=== PATIENT | female | born 1960 | race Caucasian/White ===

== ENCOUNTER 2017-10-30 08:00 | Outpatient (CLI) | payer OTHER | END 2017-10-30 08:01 | disposition home or self-care (01) | LOC: LAB.R 08:00 | PROVIDERS: ATTEND Obstetrics & Gynecology | DX: R82.99 Other abnormal findings in urine (principal) | CPT/HCPCS: 87077; 87086 ==

== ENCOUNTER 2018-02-22 15:42 | Emergency (ER) | payer OTHER ==
[2018-02-22 15:56] VITALS: BP 158/92
[2018-02-22] MEDS ORDERED: IBUPROFEN 800 MG TABLET PO STA (17:05)
--- NOTE | 2018-02-22 17:38 | XRAY Preliminary Report ---
Exam: XR CHEST 2 VIEW X-RAY IMPRESSION: Normal 2-view chest radiography. [facility] SITE ID: [id number]
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
== END 2018-02-22 17:53 | disposition home or self-care (01) ==
LOC: ED 15:42
DX: S20.211A Contusion of right front wall of thorax, initial encounter (principal); V43.52XA Car driver injured in collision with other type car in traffic accident, initial encounter
CPT/HCPCS: 71046; 99282; 99283; A9270

== ENCOUNTER 2018-12-05 10:56 | Emergency (ER) | payer BC, OTHER ==
[2018-12-05 11:37] LABS: BASOPHILS # (AUTO) 0.1 10^3/uL (0.0-0.1); BASOPHILS % (AUTO) 0.6 %; EOSINOPHILS # (AUTO) 0.4 10^3/uL (0.0-0.7); EOSINOPHILS % (AUTO) 2.1 %; HGB - HEMOGLOBIN 12.8 g/dL (12.0-16.0); LYMPHOCYTES # (AUTO) 1.4 10^3/uL (1.5-3.5); LYMPHOCYTES % (AUTO) 7.9 %; MEAN CORPUSCULAR HEMOGLOBIN 30.1 pg (27.0-31.0); MEAN CORPUSCULAR HGB CONC 34.5 g/dL (32.0-36.0); MEAN CORPUSCULAR VOLUME 87.2 fL (81.0-99.0); MONOCYTES # (AUTO) 1.3 10^3/uL (0.0-1.0); NEUTROPHILS # (AUTO) 14.7 10^3/uL (1.5-6.6); NEUTROPHILS % (AUTO) 82.4 %; PLT - PLATELET COUNT 303 10^3/uL (130-450); RED BLOOD COUNT 4.24 10^6/uL (4.20-5.40); RED CELL DISTRIBUTION WIDTH 13.3 % (12.0-15.0); WHITE BLOOD COUNT 17.8 x10^3/uL (4.8-10.8)
[2018-12-05 11:44] LABS: ALBUMIN 4.2 g/dL (3.2-5.5); ALBUMIN/GLOBULIN RATIO 1.6 (1.0-2.2); BILIRUBIN,TOTAL 0.6 mg/dL (0.2-1.0); CALCIUM 9.1 mg/dL (8.5-10.3); CREATININE 0.4 mg/dL (0.4-1.0); TOTAL PROTEIN 6.9 g/dL (6.7-8.2)
[2018-12-05] MEDS ORDERED: SODIUM CHLORIDE 0.9% 1,000 ML IV ONE (12:16)
--- NOTE | 2018-12-05 12:24 | ED Physician Documentation ---
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 She has an odd constellation of symptoms. For the last 2 weeks she has had an upper respiratory infection with postnasal drip and constipation for which she is taken a variety of laxatives. More recently about a week ago she noticed some fullness of the posterior tongue and saw her physician who felt it was probably postnasal drip. Over the last few days she has had right greater than left arm weakness associated with soreness such that she is stopped brushing her hair because it hurts too much and she noticed that her hands cramp if she is writing a lot. She denies any weakness anywhere. There is no associated headache. She denies nausea or chest pain. She is mildly short of breath. She notes her blood pressure was up, but she is taking some Sudafed for the congestion. She is a daily drinker but denies anything to drink today.) Review of Systems Ten Systems: 10 systems reviewed and negative Constitutional: reports: Fatigue. denies: Fever, Chills, Weight Loss Ears: denies: Loss of hearing, Ear pain Nose: reports: Rhinorrhea / runny nose, Congestion. denies: Sinus pressure / pain Throat: denies: Sore throat Cardiac: denies: Chest pain / pressure, Palpitations Respiratory: reports: Dyspnea. denies: Cough GI: reports: Constipation. 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 - Present Medications Home Medications: Ambulatory Orders Medication Instructions Recorded Confirmed Cholecalciferol (Vitamin D3) 2,000 unit PO DAILY 09/19/13 02/22/18 [Vitamin D] Multivit with Iron-Minerals 1 each PO DAILY 09/19/13 02/22/18 [Centravites 50 Plus] - Allergies Allergies/Adverse Reactions: Allergies Allergy/AdvReac Type Severity Reaction Status Date / Time latex AdvReac Intermediate Rash Verified 02/22/18 15:56 - Social History Does the pt smoke?: No Smoking Status: Never smoker Does the pt drink ETOH?: Yes Does the pt have substance abuse?: No - Immunizations Immunizations are current?: Yes - POLST Patient has POLST: No PD ED PE NORMAL - Vitals Vital signs reviewed: Yes - General General: Alert and oriented X 3, No acute distress - HEENT HEENT: PERRL, EOMI, Other (Slightly slowed slurred speech but the oropharynx is normal) - Neck Neck: Supple, no meningeal sign, No bony TTP - Cardiac Cardiac: RRR, No murmur - Respiratory Respiratory: No respiratory distress, Clear bilaterally - Abdomen Abdomen: Normal bowel sounds, Soft, Non tender - Back Back: No CVA TTP, No spinal TTP - Derm Derm: Normal color, Warm and dry - Neuro Neuro: Alert and oriented X 3, Normal speech Eye Opening: Spontaneous Motor: Obeys Commands Verbal: Oriented GCS Score: 15 - Psych Psych: Normal mood, Normal affect NIHSS - Time Time: 12:15 - Level of Consciousness Level of consciousness: (0) Alert, Keenly responsive LOC Questions: (0) Answers both Q's correct LOC Commands: (0) Performs both correctly - Gaze Best Gaze: (0) Normal (Also checked with repetitive upward gaze for ptosis which was absent) - Visual Visual: (0) No loss - Facial Palsy Facial Palsy: (0) Normal, symmetrical movement - Motor Arms (both separate) Motor Arm (right): (0) No drift Motor Arm (left): (0) No drift - Motor Legs (both separate) Motor Leg (right): (0) No drift Motor Leg (left): (0) No drift - Limb Ataxia Limb Ataxia: (0) Absent - Sensory Sensory: (0) Normal - Best Language Best Language: (0) No aphasia - Dysarthria Dysarthria: (0) Normal - Extinction and Inattention (formally neg Extinction and inattention: (0) No abnormality - Total Score/Results Total Score/Result: 0 Results - Vitals Vitals: Vital Signs - 24 hr 12/05/18 12/05/18 12/05/18 11:05 11:20 13:00 Temperature 35.6 C L Heart Rate 77 68 Respiratory 18 18 18 Rate Blood Pressure 175/104 H 141/90 H O2 Saturation 97 98 Oxygen O2 Source Room air - EKG (time done) 1129 Rate: Rate (enter#) (73) Rhythm: NSR [place]: Normal Intervals: Normal [place] QRS: Normal Ischemia: Normal ST segments Computer interpretation: Agree with computer - Labs Labs: Laboratory Tests 12/05/18 12/05/18 12/05/18 11:18 11:18 11:23 WBC 17.8 H RBC 4.24 Hgb 12.8 Hct 37.0 MCV 87.2 MCH 30.1 MCHC 34.5 RDW 13.3 Plt Count 303 MPV 8.0 Neut # (Auto) 14.7 H Lymph # (Auto) 1.4 L Smith # (Auto) 1.3 H Eos # (Auto) 0.4 Baso # (Auto) 0.1 Absolute Nucleated RBC 0.00 Nucleated RBC % 0.0 Sodium 128 L Potassium 3.7 Chloride 94 L Carbon Dioxide 24 Anion Gap 10.0 BUN 8 Creatinine 0.4 Estimated GFR (MDRD) 165 Glucose 98 Calcium 9.1 Phosphorus 4.1 Magnesium 1.9 Total Bilirubin 0.6 AST 29 ALT 32 Alkaline Phosphatase 49 Total Creatine Kinase 82 CK-MB (CK-2) Troponin I Total Protein 6.9 Albumin 4.2 Globulin 2.7 Albumin/Globulin Ratio 1.6 Lipase 40 TSH Urine Color Urine Clarity Urine pH Ur Specific [place] Urine Protein Urine Glucose (UA) Urine Ketones Urine Occult Blood Urine Nitrite Urine Bilirubin Urine Urobilinogen Ur Leukocyte Esterase Urine RBC Urine WBC Ur Squamous Epith Cells Urine Bacteria Ur Microscopic Review Urine Culture Comments Urine Opiates Screen Ur Oxycodone Screen Urine Methadone Screen Ur Propoxyphene Screen Ur Barbiturates Screen Ur Tricyclics Screen Ur Phencyclidine Scrn Ur Amphetamine Screen U Methamphetamines Scrn U Benzodiazepines Scrn Urine Cocaine Screen U Cannabinoids Screen Ethyl Alcohol < 5.0 12/05/18 12/05/18 12/05/18 11:23 11:23 12:26 WBC RBC Hgb Hct MCV MCH MCHC RDW Plt Count MPV Neut # (Auto) Lymph # (Auto) Smith # (Auto) Eos # (Auto) Baso # (Auto) Absolute Nucleated RBC Nucleated RBC % Sodium Potassium Chloride Carbon Dioxide Anion Gap BUN Creatinine Estimated GFR (MDRD) Glucose Calcium Phosphorus Magnesium Total Bilirubin AST ALT Alkaline Phosphatase Total Creatine Kinase CK-MB (CK-2) 3.8 Troponin I < 0.04 Total Protein Albumin Globulin Albumin/Globulin Ratio Lipase TSH 1.11 Urine Color YELLOW Urine Clarity CLEAR Urine pH 7.5 Ur Specific [place] 1.010 Urine Protein NEGATIVE Urine Glucose (UA) NEGATIVE Urine Ketones NEGATIVE Urine Occult Blood NEGATIVE Urine Nitrite NEGATIVE Urine Bilirubin NEGATIVE Urine Urobilinogen 0.2 (NORMAL) Ur Leukocyte Esterase TRACE H Urine RBC None Seen Urine WBC 4-5 Ur Squamous Epith Cells NONE SEEN Urine Bacteria Rare Ur Microscopic Review INDICATED Urine Culture Comments INDICATED Urine Opiates Screen NEGATIVE Ur Oxycodone Screen NEGATIVE Urine Methadone Screen NEGATIVE Ur Propoxyphene Screen NEGATIVE Ur Barbiturates Screen NEGATIVE Ur Tricyclics Screen NEGATIVE Ur Phencyclidine Scrn NEGATIVE Ur Amphetamine Screen NEGATIVE U Methamphetamines Scrn NEGATIVE U Benzodiazepines Scrn NEGATIVE Urine Cocaine Screen NEGATIVE U Cannabinoids Screen NEGATIVE Ethyl Alcohol - Rads (name of study) CT Head Radiology: EMP read contemporaneously (normal) PD MEDICAL DECISION MAKING - ED course ED course: This is a 58-year-old woman with relation of symptoms including arm pain and weakness, constipation, slightly slurred and thick speech. There is no evidence of toxicologic cause. It is not unilateral so it would not be strokelike. Could be something like MS. Myasthenia gravis is considered but she does not have ptosis. Workup demonstrates only soft UTI which will be treated especially with a white count pending her culture and modest hyponatremia probably from her pushing free water for the constipation. That does not seem to be an emergent issue but I did speak with her primary care physician, Dr. Henderson who will fol low up with her and consider MRI or neurologic referral. Departure - Departure Disposition: 01 Home, Self Care Clinical Impression: Arm weakness, Hyponatremia Constipation Qualifiers: Constipation type: other constipation type Qualified Code(s): K59.09 - Other constipation UTI (urinary tract infection) Qualifiers: Urinary tract infection type: site unspecified Hematuria presence: without hematuria Qualified Code(s): N39.0 - Urinary tract infection, site not specified Condition: Good Record reviewed to determine appropriate education?: Yes Comments: As discussed with the exception of a mildly low sodium and potentially UTI no clear cause was identified for your symptoms. Dr. Henderson expects to hear from you and will follow up with you and potentially order an MRI and/or neurologic consult. Return for any new or worsening symptoms. Dr. Scheidt may discontinue the antibiotics in a couple of days if your urine culture is negative. You can take Magnesium citrate which is available [id number] for the constipation.
[2018-12-05 12:34] LABS: TROPONIN I < 0.04 ng/mL (<0.49)
[2018-12-05 12:34] LABS: MUDS CUTOFF CONCENTRATIONS CUTOFF CONC BELOW:
[2018-12-05 12:35] LABS: CK- CREATINE KINASE 82 IU/L (22-269); MAGNESIUM 1.9 mg/dL (1.7-2.8); PHOSPHORUS 4.1 mg/dL (2.5-4.6)
[2018-12-05 12:36] LABS: CREATINE KINASE MB 3.8 ng/mL (0.6-6.3)
[2018-12-05 12:38] LABS: BILIRUBIN,URINE NEGATIVE (NEGATIVE); GLUCOSE, URINE (UA) NEGATIVE (NEGATIVE); KETONES,URINE (UA) NEGATIVE (NEGATIVE); LEUKOCYTE ESTERASE, URINE TRACE (NEGATIVE); NITRITE,URINE NEGATIVE (NEGATIVE); OCCULT BLOOD,URINE NEGATIVE (NEGATIVE); PH,URINE 7.5 PH (5.0-7.5); PROTEIN,URINE NEGATIVE (NEGATIVE); UROBILINOGEN,URINE 0.2 (NORMAL) E.U./dL (NORMAL)
[2018-12-05 12:39] LABS: CLARITY,URINE CLEAR (CLEAR)
[2018-12-05 12:48] LABS: AMPHETAMINE SCREEN,URINE NEGATIVE (NEGATIVE); BACTERIA,URINE Rare /HPF (None Seen); BENZODIAZEPINES SCREEN, URINE NEGATIVE (NEGATIVE); COCAINE SCREEN URINE NEGATIVE (NEGATIVE); METHADONE SCREEN, URINE NEGATIVE (NEGATIVE); METHAMPHETAMINES SCREEN, URINE NEGATIVE (NEGATIVE); OPIATE SCREEN, URINE NEGATIVE (NEGATIVE); OXYCODONE SCREEN, URINE NEGATIVE (NEGATIVE); PROPOXYPHENE SCREEN, URINE NEGATIVE (NEGATIVE); RBC,URINE None Seen /HPF (0-5); SQUAMOUS EPITHELIAL CELL,UR NONE SEEN (<= Few); TRICYCLIC ANTIDEPRESSANT,URINE NEGATIVE (NEGATIVE)
[2018-12-05 13:08] VITALS: BP 141/90
--- NOTE | 2018-12-05 13:08 | CT Report ---
Reason: R>L arm weak Procedure Date: 12/05/2018 Accession Number: [id number] / [id number] Procedure: CT - HEAD WO CPT Code: FULL RESULT: EXAM: CT HEAD WITHOUT CONTRAST EXAM DATE: 12/05/2018 12:34 PM. CLINICAL HISTORY: Right lower arm weakness in a 58-year-old female. COMPARISON: None. TECHNIQUE: Multiaxial CT images were obtained from the foramen magnum to the vertex. Reformats: Sagittal and coronal. IV contrast: None. In accordance with CT protocol optimization, one or more of the following dose reduction techniques were utilized for this exam: automated exposure control, adjustment of mA and/or KV based on patient size, or use of iterative reconstructive technique. FINDINGS: Parenchyma: No intraparenchymal hemorrhage. No evidence of mass, midline shift, or CT findings of infarction. Owens-white differentiation is distinct. Extraaxial Spaces: Normal for age. No subdural or epidural collections identified. Ventricles: Normal in size and position. Sinuses and Orbits: Imaged paranasal sinuses, orbits, and mastoids show no significant abnormality. Bones: No evidence of fracture or calvarial defect. Other: None. IMPRESSION: Normal examination. No mass, hemorrhage, CVA or other demonstrated cause for the patient's symptoms. [facility]
== END 2018-12-05 13:46 | disposition home or self-care (01) ==
LOC: ED 10:56
DX: R53.1 Weakness (principal); E87.1 Hypo-osmolality and hyponatremia; K59.09 Other constipation; N39.0 Urinary tract infection, site not specified
CPT/HCPCS: 36415; 70450; 80053; 80306; 80320; 81001; 81003; 82550; 82553; 83690; 83735; 84100; 84443; 84484; 85025; 87086; 93005; 96360; 99284

== ENCOUNTER 2018-12-10 15:43 | Outpatient (CLI) | payer BC ==
[2018-12-10 19:49] LABS: ALBUMIN 4.1 g/dL (3.2-5.5); ALBUMIN/GLOBULIN RATIO 1.4 (1.0-2.2); BILIRUBIN,TOTAL 0.4 mg/dL (0.2-1.0); CREATININE 0.5 mg/dL (0.4-1.0)
[2018-12-10 20:06] LABS: CALCIUM 9.6 mg/dL (8.5-10.3)
== END 2018-12-10 23:59 ==
LOC: LAB.WCP 15:43
PROVIDERS: ATTEND Family Medicine
DX: E87.1 Hypo-osmolality and hyponatremia (principal)
CPT/HCPCS: 36415; 80053; 83930; 83935; 84300

== ENCOUNTER 2018-12-11 08:00 | Outpatient (CLI) | payer BC | END 2018-12-11 23:59 | LOC: LAB.R 08:00 | DX: E87.1 Hypo-osmolality and hyponatremia (principal) | CPT/HCPCS: 83935; 84300 ==

== ENCOUNTER 2018-12-13 05:54 | Emergency (ER) | payer BC ==
[2018-12-13] MEDS ORDERED: IOPAMIDOL-300 100 ML VIAL IVP ONE (05:55)
[2018-12-13] MEDS ORDERED: IOVERSOL 320 100 ML VIAL IVP ONE ×3 (05:55→13:49)
[2018-12-13 06:57] LABS: BASOPHILS # (AUTO) 0.1 10^3/uL (0.0-0.1); BASOPHILS % (AUTO) 1.2 %; EOSINOPHILS # (AUTO) 0.6 10^3/uL (0.0-0.7); EOSINOPHILS % (AUTO) 8.6 %; HGB - HEMOGLOBIN 12.9 g/dL (12.0-16.0); LYMPHOCYTES # (AUTO) 2.4 10^3/uL (1.5-3.5); MEAN CORPUSCULAR HEMOGLOBIN 29.7 pg (27.0-31.0); MEAN CORPUSCULAR HGB CONC 33.3 g/dL (32.0-36.0); MEAN CORPUSCULAR VOLUME 89.2 fL (81.0-99.0); MEAN PLATELET VOLUME 8.3 fL (7.9-10.8); MONOCYTES # (AUTO) 0.6 10^3/uL (0.0-1.0); NEUTROPHILS # (AUTO) 3.5 10^3/uL (1.5-6.6); NEUTROPHILS % (AUTO) 49.2 %; PLT - PLATELET COUNT 311 10^3/uL (130-450); RED BLOOD COUNT 4.35 10^6/uL (4.20-5.40); RED CELL DISTRIBUTION WIDTH 13.4 % (12.0-15.0); WHITE BLOOD COUNT 7.2 x10^3/uL (4.8-10.8)
[2018-12-13 07:09] LABS: ALBUMIN 4.3 g/dL (3.2-5.5); ALBUMIN/GLOBULIN RATIO 1.5 (1.0-2.2); BILIRUBIN,TOTAL 0.6 mg/dL (0.2-1.0); CALCIUM 9.4 mg/dL (8.5-10.3); CREATININE 0.4 mg/dL (0.4-1.0); TOTAL PROTEIN 7.2 g/dL (6.7-8.2)
[2018-12-13] MEDS ORDERED: SODIUM CHLORIDE 0.9% 1,000 ML IV ONE (07:27)
--- NOTE | 2018-12-13 08:24 | CT Report ---
Reason: Dizzy, speech changes Procedure Date: 12/13/2018 Accession Number: [id number] / [id number] Procedure: CT - ANGIO NECK W/WO CPT Code: FULL RESULT: EXAM: CT ANGIOGRAM NECK EXAM DATE: 12/13/2018 07:58 AM. CLINICAL HISTORY: Dizzy, speech changes. COMPARISON: No previous neck CTA. TECHNIQUE: Routine axial helical imaging was performed from the skull base through the aortic arch. Reconstructions: Routine multiplanar 3D MIP reconstructions. IV Contrast: 80 mL Optiray 320. Evaluation of arterial stenosis is based on a NASCET method of measurement. In accordance with CT protocol optimization, one or more of the following dose reduction techniques were utilized for this exam: automated exposure control, adjustment of mA and/or KV based on patient size, or use of iterative reconstructive technique. FINDINGS: The top of the aortic arch and the origins of the great vessels are patent. Unremarkable appearance of the left cervical vertebral artery which arises from the aortic arch. Unremarkable appearance of the right cervical vertebral artery. Unremarkable appearance of the right cervical carotid artery, no acute abnormality or stenosis. Minimal atherosclerotic disease at the left cervical carotid bifurcation. The left cervical carotid arteries otherwise unremarkable without evidence of acute abnormality or significant stenosis. IMPRESSION: Essentially unremarkable neck CTA, no acute abnormality or flow limiting stenosis of the vertebral or carotid arteries in the neck. [facility]
--- NOTE | 2018-12-13 08:24 | CT Report ---
Reason: Dizzy, speech changes Procedure Date: 12/13/2018 Accession Number: [id number] / [id number] Procedure: CT - ANGIO HEAD W CPT Code: FULL RESULT: EXAM: CT ANGIOGRAM HEAD. CT SCAN OF THE HEAD WITHOUT AND WITH CONTRAST. EXAM DATE: 12/13/2018 07:58 AM CLINICAL HISTORY: Dizzy, speech changes. COMPARISON: HEAD W/O 12/05/2018 12:33 PM. TECHNIQUE: - CT Scan Head: Using a multidetector scanner, axial images were acquired from the foramen magnum to the skull vertex prior to and following contrast administration. - CT Angiogram: Using a multidetector scanner, high-resolution axial images were acquired from the skull base through vertex following rapid infusion of intravenous contrast. Reformats: Multiplanar MIP reformats were reconstructed. Nascet criteria used for stenosis measurement. IV Contrast: 80 mL Optiray 320. In accordance with CT protocol optimization, one or more of the following dose reduction techniques were utilized for this exam: automated exposure control, adjustment of mA and/or KV based on patient size, or use of iterative reconstructive technique. FINDINGS: Brain CT without contrast: Stable CT appearance of the brain. No acute abnormality. No evidence for hemorrhage, infarct or mass. No acute sinus or mastoid opacity. Intact calvarium. Brain CT with IV contrast: No abnormal enhancement. Head CT angiogram: Patent distal internal carotid arteries. No intracranial vertebrobasilar insufficiency. Patent anterior communicating artery and right posterior communicating artery. No intracranial large artery flow-limiting stenosis, occlusion or filling defect. No evidence for saxman of [place] aneurysm or major dural venous sinus thrombus. IMPRESSION: 1. Negative brain CT without and with contrast. Negative head CTA. 2. These findings do not entirely preclude the possibility of small or acute ischemic infarct for which brain MRI is much more sensitive. [facility]
[2018-12-13 09:11] VITALS: BP 145/100
--- NOTE | 2018-12-13 09:13 | ED Physician Documentation ---
History of Present Illness - Stated complaint Stated Complaint: STROKE LIKE SYPMTOMS - Chief complaint Chief Complaint: Neuro - Additonal information Additional information: 58-year-old female presents the emergency department with symptoms that have been ongoing for over a week. The patient reports feeling very dizzy, head congestion, feeling like her speech is thickened. The patient also reports pain in her upper extremities. The patient denies any focal motor or sensory changes. The patient feels like her gait is clumsy during this time. The patient denies headache, neck pain, vision changes or any other acute symptoms today. The symptoms have been present for over a week and really unchanged. The patient was seen in the emergency department and had a CT scan recently which did not show any signal for normality, but her workup did reveal hyponatremia which is followed up by her primary care. The patient is also scheduled for an outpatient MRI next week. No specific triggering factors. No relieving factors. No other associated symptoms Review of Systems Constitutional: denies: Fever, Chills, Fatigue Eyes: denies: Loss of vision, Discharge Ears: denies: Ear pain Nose: reports: Congestion Throat: denies: Sore throat Cardiac: denies: Chest pain / pressure Respiratory: denies: Dyspnea, Cough GI: denies: Abdominal Pain : denies: Dysuria Skin: denies: Rash Musculoskeletal: denies: Neck pain, Back pain Neurologic: reports: Generalized weakness, Difficulty speaking. 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: Other - Present Medications Home Medications: Ambulatory Orders Medication Instructions Recorded Confirmed Cholecalciferol (Vitamin D3) 2,000 unit PO DAILY 09/19/13 02/22/18 [Vitamin D] Multivit with Iron-Minerals 1 each PO DAILY 09/19/13 02/22/18 [Centravites 50 Plus] Amox/Clav 875/125 [Augmentin] 1 each PO Q12H #10 tablet 12/05/18 - Allergies Allergies/Adverse Reactions: Allergies Allergy/AdvReac Type Severity Reaction Status Date / Time latex AdvReac Intermediate Rash Verified 12/13/18 06:07 - Social History Does the pt smoke?: No Smoking Status: Never smoker Does the pt drink ETOH?: Yes Does the pt have substance abuse?: No - Immunizations Immunizations are current?: Yes - POLST Patient has POLST: No PD ED PE NORMAL - General General: Alert and oriented X 3, No acute distress - HEENT HEENT: Atraumatic, PERRL, EOMI, Ears normal, Moist mucous membranes, Pharynx benign - Neck Neck: Supple, no meningeal sign, No bruit - Cardiac Cardiac: RRR, Strong equal pulses - Respiratory Respiratory: No respiratory distress, Clear bilaterally - Abdomen Abdomen: Soft, Non tender - Derm Derm: Normal color - Extremities Extremities: No deformity, Normal ROM s pain, No edema - Neuro Neuro: Alert and oriented X 3, clinical education consultant 2-12 intact, No motor deficit, No sensory deficit, Normal speech, Other (Finger to nose, heel to baer are both intact. 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 The patient has normal 2/4 patellar reflexes. Normal sensation to light touch) Eye Opening: Spontaneous Motor: Obeys Commands Verbal: Oriented GCS Score: 15 - Psych Psych: Normal mood Results - Vitals Vitals: Vital Signs - 24 hr 12/13/18 12/13/18 12/13/18 05:59 06:16 08:00 Temperature 35.7 C L Heart Rate 90 74 65 Respiratory 19 11 L 16 Rate Blood Pressure 155/95 H 155/95 H 128/96 H O2 Saturation 96 95 94 12/13/18 08:30 Temperature Heart Rate 64 Respiratory 16 Rate Blood Pressure 145/100 H O2 Saturation 96 Oxygen O2 Source Room air - Labs Labs: Laboratory Tests 12/13/18 12/13/18 12/13/18 06:08 06:08 06:08 WBC 7.2 RBC 4.35 Hgb 12.9 Hct 38.8 MCV 89.2 MCH 29.7 MCHC 33.3 RDW 13.4 Plt Count 311 MPV 8.3 Neut # (Auto) 3.5 Lymph # (Auto) 2.4 [place] # (Auto) 0.6 Eos # (Auto) 0.6 Baso # (Auto) 0.1 Absolute Nucleated RBC 0.00 Nucleated RBC % 0.0 ESR Sodium 125 L Potassium 3.9 Chloride 91 L Carbon Dioxide 24 Anion Gap 10.0 BUN 10 Creatinine 0.4 Estimated GFR (MDRD) 165 Glucose 91 Calcium 9.4 Total Bilirubin 0.6 AST 62 H ALT 105 H Alkaline Phosphatase 61 Troponin I < 0.04 C-Reactive Protein Total Protein 7.2 Albumin 4.3 Globulin 2.9 Albumin/Globulin Ratio 1.5 Lipase 61 H 12/13/18 12/13/18 06:08 06:08 WBC RBC Hgb Hct MCV MCH MCHC RDW Plt Count MPV Neut # (Auto) Lymph # (Auto) [place] # (Auto) Eos # (Auto) Baso # (Auto) Absolute Nucleated RBC Nucleated RBC % ESR 7 Sodium Potassium Chloride Carbon Dioxide Anion Gap BUN Creatinine Estimated GFR (MDRD) Glucose Calcium Total Bilirubin AST ALT Alkaline Phosphatase Troponin I C-Reactive Protein < 1.0 Total Protein Albumin Globulin Albumin/Globulin Ratio Lipase - Rads (name of study) CT head/neck Radiology: Final report received, See rad report (1. Negative brain CT without and with contrast. Negative head CTA. 2. These findings do not entirely preclude the possibility of small or acute ischemic infarct for which brain MRI is much more sensitive. IMPRESSION: Essentially unremarkable neck CTA, no acute abnormality or ) PD MEDICAL DECISION MAKING - ED course ED course: The patient's workup in the emergency department does not reveal a clear etiology for the source of her symptoms. The patient again does show signs of hyponatremia on her lab evaluation. But, the patient is not on any medications that would cause this, she does drink a fair amount of water which may be the etiology. I discussed the patient's presentation and findings with her primary care who is very familiar with the patient. She recommends decreasing her free water and instead drinking Pedialyte.She will follow-up on the patient to further investigate the ongoing hyponatremia. The hyponatremia is not low enough to require admission to the hospital but may beShe will follow-up on the patient to further investigate the ongoing hyponatremia. The hyponatremia is not low enough to require admission to the hospital but may be to her symptoms. Is still scheduled for an MRI and I advised that she keep that appointment to further assess her symptoms. Presently, the patient appears safe and appropriate for discharge to further workup the symptoms that she has been experiencing. I discussed warning signs and recommended returning to the emergency department immediately for any worsening or any concerns Departure - Departure Disposition: 01 Home, Self Care Clinical Impression: Dizziness, Hyponatremia Condition: Good Instructions: Hyponatremia Dc, ED Dizziness [facility] Follow-Up: Reji Henderson, [Primary Care Provider] - Within 1 week (Please still get the MRI as scheduled to further assess her symptoms) Comments: Please limit your free water Instead drink either Pedialyte or Gatorade, Until your primary can sort out why your sodium is continually becoming low Please return to the emergency department for any worsening or any concerns
== END 2018-12-13 09:42 | disposition home or self-care (01) ==
LOC: ED 05:54
DX: R42 Dizziness and giddiness (principal); E87.1 Hypo-osmolality and hyponatremia; R47.81 Slurred speech; C43.4 Malignant melanoma of scalp and neck; D05.00 Lobular carcinoma in situ of unspecified breast
CPT/HCPCS: 36415; 70496; 70498; 70553; 80053; 83690; 84484; 85025; 85651; 86140; 93005; 96360; 99283; 99284; A9585; Q9967

== ENCOUNTER 2018-12-13 10:46 | Outpatient (CLI) | payer BC ==
[2018-12-13] MEDS ORDERED: GADOBUTROL 7.5 MMOL/7.5 ML VIAL ONE (11:14)
[2018-12-13] MEDS ORDERED: GADOBUTROL 7.5 MMOL/7.5 ML VIAL IVP ONE (11:46)
--- NOTE | 2018-12-13 12:40 | MRI Report ---
Reason: SLURRED SPEECH,DIZZINESS,MELANOMA,LENTIGO MALIGNA, Procedure Date: 12/13/2018 Accession Number: [id number] / [id number] Procedure: MRI - Brain W/WO CPT Code: FULL RESULT: EXAM: MRI BRAIN WITHOUT AND WITH CONTRAST EXAM DATE: 12/13/2018 11:55 AM. CLINICAL HISTORY: SLURRED SPEECH,DIZZINESS,MELANOMA,LENTIGO MALIGNA. COMPARISON: None. TECHNIQUE: Multiplanar, multisequence T1-weighted and fluid-sensitive MR sequences of the brain were performed. Sequences optimized for routine evaluation. Other: None. IV Contrast: Without and with 7.5 mL Gadavist. FINDINGS: Brain Volume: Normal for age. Parenchyma: No acute hemorrhage, mass, or infarct. Normal-appearing white matter for age. No abnormal enhancement. Ventricles/Cisterns: No hydrocephalus. No abnormal extra-axial fluid collection or hemorrhage. Orbits: Symmetric and unremarkable. Sella [place]: The pituitary gland, cavernous sinuses, suprasellar cistern and optic chiasm are unremarkable. IAC: Symmetric and unremarkable. Vasculature: Normal signal flow void is seen in the major arterial structures at the skull base. The dural sinuses are patent and enhance normally. Sinuses: No acute sinus disease. Bones: No focal pathologic appearing marrow signal changes. Other: None. IMPRESSION: 1. Normal brain MRI. [facility]
== END 2018-12-13 10:47 | disposition home or self-care (01) ==
LOC: DI 10:46
PROVIDERS: ATTEND Family Medicine
DX: R47.81 Slurred speech (principal); R42 Dizziness and giddiness; C43.30 Malignant melanoma of unspecified part of face; D05.00 Lobular carcinoma in situ of unspecified breast
CPT/HCPCS: 70553

== ENCOUNTER 2018-12-19 07:46 | Outpatient (CLI) | payer BC ==
[2018-12-19 10:40] LABS: ALBUMIN/GLOBULIN RATIO 1.4 (1.0-2.2); BILIRUBIN,TOTAL 0.5 mg/dL (0.2-1.0); CALCIUM 9.1 mg/dL (8.5-10.3); CREATININE 0.3 mg/dL (0.4-1.0); TOTAL PROTEIN 6.9 g/dL (6.7-8.2)
--- NOTE | 2018-12-19 13:07 | Ultrasound Report ---
Reason: ABNORMAL LIVER FUNCTION TESTS Procedure Date: 12/19/2018 Accession Number: [id number] / [id number] Procedure: US - Abdomen Complete CPT Code: FULL RESULT: EXAM: ABDOMEN ULTRASOUND EXAM DATE: 12/19/2018 08:08 AM. CLINICAL HISTORY: ABNORMAL LIVER FUNCTION TESTS. COMPARISON: None. TECHNIQUE: Real-time scanning was performed with static images obtained. FINDINGS: Liver: Normal in size and background echotexture. 14 cm. Main portal vein flow: Hepatopetal. 4 mm hyperechoic nodule in the liver above the gallbladder fossa possibly incidental hemangioma. Gallbladder: Normal. No stones, wall thickening, or sonographic Correa's sign. Probable incidental 2 mm gallbladder wall polyp. Biliary System: Common bile duct measures 4 mm. No intrahepatic or extrahepatic ductal dilatation. Pancreas: Visualized portion is unremarkable. Kidneys: Right: 10.9 cm longitudinally. Normal. No contour-deforming mass, stones, or hydronephrosis. Left: 12.0 cm longitudinally. Normal. No contour-deforming mass, stones, or hydronephrosis. Spleen: 8.6 x 3.2 x 3.2 cm. Normal in size and echotexture. Aorta and Inferior Vena Cava: Unremarkable. Other: None. IMPRESSION: 1. 4 mm hyperechoic nodule in the liver above the gallbladder fossa of doubtful clinical significance, favor incidental hemangioma. 2. 2 mm gallbladder wall polyp. 3. Otherwise normal abdominal ultrasound. [facility]
[2018-12-20 13:07] LABS: HEPATITIS B SURFACE ANTIGEN NON-REACTIVE (NON-REACTIVE); HEPATITIS C ANTIBODY NON-REACTIVE (NON-REACTIVE)
== END 2018-12-19 07:47 | disposition home or self-care (01) ==
LOC: DI 07:46
PROVIDERS: ATTEND Family Medicine
DX: R94.5 Abnormal results of liver function studies (principal); E87.1 Hypo-osmolality and hyponatremia; K82.4 Cholesterolosis of gallbladder; R16.0 Hepatomegaly, not elsewhere classified
CPT/HCPCS: 36415; 76700; 80053; 81599; 83930; 83935; 84300; 86317; 86704; 86709; 86803; 87340

== ENCOUNTER 2018-12-24 10:36 | Outpatient (CLI) | payer BC ==
[2018-12-24 19:40] LABS: ALBUMIN 4.2 g/dL (3.2-5.5); ALBUMIN/GLOBULIN RATIO 1.5 (1.0-2.2); ALKALINE PHOSPHATASE 98 IU/L (42-121); ALT ALANINE AMINOTRANSFERASE 261 IU/L (10-60); AST ASPARTATE AMINOTRANSFERASE 109 IU/L (10-42); BILIRUBIN,TOTAL 0.5 mg/dL (0.2-1.0); BUN - BLOOD UREA NITROGEN 15 mg/dL (6-20); CALCIUM 9.5 mg/dL (8.5-10.3); CARBON DIOXIDE - CO2 25 mmol/L (21-32); CHLORIDE 99 mmol/L (101-111); CREATININE 0.5 mg/dL (0.4-1.0); GFR - MDRD 127 (>89); GLUCOSE 69 mg/dL (70-100); SODIUM 133 mmol/L (135-145)
== END 2018-12-24 10:37 | disposition home or self-care (01) ==
LOC: LAB.WCP 10:36
PROVIDERS: ATTEND Family Medicine
DX: R94.5 Abnormal results of liver function studies (principal); E22.2 Syndrome of inappropriate secretion of antidiuretic hormone
CPT/HCPCS: 36415; 80053; 82105; 82390; 84443

== ENCOUNTER 2019-01-03 07:48 | Outpatient (CLI) | payer BC ==
[2019-01-03] MEDS ORDERED: IOPAMIDOL-300 50 ML VIAL ONE (08:03)
[2019-01-03] MEDS ORDERED: IOPAMIDOL-300 100 ML VIAL ONE (08:03)
--- NOTE | 2019-01-03 11:23 | CT Report ---
Reason: SIADH, LOBULAR CARCINOMA, BREAST, MELANOMA Procedure Date: 01/03/2019 Accession Number: [id number] / [id number] Procedure: CT - CHEST W CPT Code: FULL RESULT: EXAM: CT CHEST, ABDOMEN EXAM DATE: 01/03/2019 09:29 AM. CLINICAL HISTORY: SIADH, lobular carcinoma, breast, melanoma. COMPARISONS: CHEST W/ 01/03/2019 9:15 AM. CHEST 2 VIEW 02/22/2018 5:06 PM. TECHNIQUE: Routine helical CT imaging was performed through the chest, abdomen. IV contrast: ISOVUE 300: 100 mL. Enteric contrast: No. Reconstructions: Coronal and sagittal. In accordance with CT protocol optimization, one or more of the following dose reduction techniques were utilized for this exam: automated exposure control, adjustment of mA and/or KV based on patient size, or use of iterative reconstructive technique. FINDINGS: Lungs/Pleura: 3 mm right upper lobe nodule, image 36 series 3. Mediastinum: Normal. No adenopathy or masses. Extrapulmonary thorax: Postsurgical changes are seen in the right axilla and right breast region. No suspicious adenopathy or mass in the postsurgical bed. Postsurgical changes are seen in the left axilla and left breast region. There is a calcified well-demarcated 2.4 x 1.0 x 1.5 cm mass in the left breast image 42 series 3, felt to represent a postsurgical finding. No suspicious adenopathy in the left axilla. Liver: Normal. Gallbladder/Bile Ducts: Unremarkable. Spleen: Normal. Pancreas: Normal. Adrenal Glands: Normal. Kidneys: Normal. No masses or hydronephrosis. Peritoneal Cavity/Bowel: Normal. No free fluid, free air or adenopathy. No masses or acute inflammatory process. The appendix is well visualized and normal. Vasculature: No aneurysms or other significant abnormality. Bones: No significant abnormality. Other: None. IMPRESSION: Postsurgical changes in breasts and axilla regions. Postsurgical findings in the left breast region should be correlated to prior mammographic results, these are not available at this institution. [facility]
--- NOTE | 2019-01-03 11:23 | CT Report ---
Reason: SIADH, LOBULAR CARCINOMA, BREAST, MELANOMA Procedure Date: 01/03/2019 Accession Number: [id number] / [id number] Procedure: CT - ABDOMEN W CPT Code: FULL RESULT: EXAM: CT CHEST, ABDOMEN EXAM DATE: 01/03/2019 09:29 AM. CLINICAL HISTORY: SIADH, lobular carcinoma, breast, melanoma. COMPARISONS: CHEST W/ 01/03/2019 9:15 AM. CHEST 2 VIEW 02/22/2018 5:06 PM. TECHNIQUE: Routine helical CT imaging was performed through the chest, abdomen. IV contrast: ISOVUE 300: 100 mL. Enteric contrast: No. Reconstructions: Coronal and sagittal. In accordance with CT protocol optimization, one or more of the following dose reduction techniques were utilized for this exam: automated exposure control, adjustment of mA and/or KV based on patient size, or use of iterative reconstructive technique. FINDINGS: Lungs/Pleura: 3 mm right upper lobe nodule, image 36 series 3. Mediastinum: Normal. No adenopathy or masses. Extrapulmonary thorax: Postsurgical changes are seen in the right axilla and right breast region. No suspicious adenopathy or mass in the postsurgical bed. Postsurgical changes are seen in the left axilla and left breast region. There is a calcified well-demarcated 2.4 x 1.0 x 1.5 cm mass in the left breast image 42 series 3, felt to represent a postsurgical finding. No suspicious adenopathy in the left axilla. Liver: Normal. Gallbladder/Bile Ducts: Unremarkable. Spleen: Normal. Pancreas: Normal. Adrenal Glands: Normal. Kidneys: Normal. No masses or hydronephrosis. Peritoneal Cavity/Bowel: Normal. No free fluid, free air or adenopathy. No masses or acute inflammatory process. The appendix is well visualized and normal. Vasculature: No aneurysms or other significant abnormality. Bones: No significant abnormality. Other: None. IMPRESSION: Postsurgical changes in breasts and axilla regions. Postsurgical findings in the left breast region should be correlated to prior mammographic results, these are not available at this institution. [facility]
[2019-01-03] MEDS ORDERED: IOPAMIDOL-300 50 ML VIAL PO ONE (13:34)
[2019-01-03] MEDS ORDERED: IOPAMIDOL-300 100 ML VIAL IVP ONE (13:34)
== END 2019-01-03 07:49 | disposition home or self-care (01) ==
LOC: DI 07:48
PROVIDERS: ATTEND Family Medicine
DX: C43.30 Malignant melanoma of unspecified part of face (principal); E22.2 Syndrome of inappropriate secretion of antidiuretic hormone; D05.00 Lobular carcinoma in situ of unspecified breast; R94.5 Abnormal results of liver function studies
CPT/HCPCS: 71260; 74160; Q9967

== ENCOUNTER 2019-01-21 08:00 | Outpatient (CLI) | payer BC ==
[2019-01-21 13:01] LABS: ALBUMIN 3.8 g/dL (3.2-5.5); ALBUMIN/GLOBULIN RATIO 1.2 (1.0-2.2); BILIRUBIN,TOTAL 0.5 mg/dL (0.2-1.0); CALCIUM 9.2 mg/dL (8.5-10.3); CREATININE 0.5 mg/dL (0.4-1.0); TOTAL PROTEIN 6.9 g/dL (6.7-8.2)
== END 2019-01-21 23:59 | disposition home or self-care (01) ==
LOC: LAB.WCP 08:00
PROVIDERS: ATTEND Family Medicine
DX: E87.1 Hypo-osmolality and hyponatremia (principal); R94.5 Abnormal results of liver function studies
CPT/HCPCS: 36415; 80053

== ENCOUNTER 2019-02-13 08:00 | Outpatient (CLI) | payer BC | END 2019-02-13 23:59 | disposition home or self-care (01) | LOC: LAB.R 08:00 | PROVIDERS: ATTEND Physician Assistant | DX: R30.0 Dysuria (principal) | CPT/HCPCS: 87077; 87086; 87181 ==

== ENCOUNTER 2019-03-14 14:50 | Outpatient (CLI) | payer BC | END 2019-03-14 14:51 | disposition home or self-care (01) | LOC: LAB.WCP 14:50 | PROVIDERS: ATTEND Family Medicine | DX: R41.3 Other amnesia (principal); M25.50 Pain in unspecified joint; R30.0 Dysuria | CPT/HCPCS: 36415; 86617; 87086 ==

== ENCOUNTER 2019-07-31 07:43 | Day surgery (SDC) | payer BC ==
[2019-07-31] MEDS ORDERED: LACTATED RINGERS 1,000 ML IV ONE (07:54)
[2019-07-31] MEDS ORDERED: fentaNYL 250 MCG/5 ML VIAL IVP ONE (09:08)
[2019-07-31] MEDS ORDERED: MIDAZOLAM 2 MG/2 ML VIAL IVP ONE (09:08)
[2019-07-31 10:05] VITALS: BP 106/74
== END 2019-07-31 07:44 | disposition home or self-care (01) ==
LOC: SDS 07:43
PROVIDERS: ATTEND Surgery
PROC: 0DBP8ZZ Excision of Rectum, Via Natural or Artificial Opening Endoscopic (ICD-10-PCS; principal; 2019-07-31 09:15)
DX: Z12.11 Encounter for screening for malignant neoplasm of colon (principal); K62.1 Rectal polyp; D05.00 Lobular carcinoma in situ of unspecified breast; R42 Dizziness and giddiness

== ENCOUNTER 2020-01-09 10:07 | Outpatient (CLI) | payer BC ==
[2020-01-09 12:25] LABS: THYROID STIMULATING HORMONE 1.25 uIU/mL (0.34-5.60)
[2020-01-09 12:26] LABS: FREE T3 3.47 pg/mL (2.5-3.9)
[2020-01-09 12:27] LABS: FREE T4 (FREE THYROXINE) 0.78 ng/dL (0.58-1.64)
== END 2020-01-09 23:59 | disposition home or self-care (01) ==
LOC: LAB.WCP 10:07
PROVIDERS: ATTEND Family Medicine
DX: E04.1 Nontoxic single thyroid nodule (principal)
CPT/HCPCS: 36415; 84439; 84443; 84481

== ENCOUNTER 2020-01-12 08:00 | Outpatient (CLI) | payer BC | END 2020-01-12 23:59 | disposition home or self-care (01) | LOC: LAB.R 08:00 | PROVIDERS: ATTEND Family Medicine | DX: R63.5 Abnormal weight gain (principal) | CPT/HCPCS: 81599; 82530 ==

== ENCOUNTER 2020-03-17 07:46 | Outpatient (CLI) | payer BC ==
--- NOTE | 2020-03-17 12:50 | Ultrasound Report ---
Reason: THYROID NODULE Procedure Date: 03/17/2020 Accession Number: [id number] / [id number] Procedure: US - Head or Neck Soft Tissue CPT Code: Final Report FULL RESULT: PROCEDURE: Head or Neck Soft Tissue INDICATIONS: THYROID NODULE TECHNIQUE: Real-time scanning was performed of the thyroid gland, with image documentation. COMPARISON: None. FINDINGS: Right: The right thyroid lobe measures 3.4 x 1.0 x 1.3 cm and has a homogeneous echotexture. Left: The left thyroid lobe measures 3.2 x 0.9 x 1.3 cm and has a homogeneous echotexture. Isthmus: The isthmus measures 5 mm diameter. No discrete thyroid nodules. IMPRESSION: Normal sonographic appearance of the thyroid. No thyroid nodules visualized. No enlarged cervical lymph nodes. Reviewed by: Ayesha Jimenez MD on 03/17/2020 12:49 PM PDT Approved by: Ayesha Jimenez MD on 03/17/2020 12:49 PM PDT Station ID: [id number]
== END 2020-03-17 07:47 | disposition home or self-care (01) ==
LOC: DI 07:46
PROVIDERS: ATTEND Family Medicine
DX: E04.1 Nontoxic single thyroid nodule (principal)
CPT/HCPCS: 76536

== ENCOUNTER 2020-03-25 09:20 | Outpatient (CLI) | payer BC ==
[2020-03-25 11:57] LABS: BASOPHILS # (AUTO) 0.1 10^3/uL (0.0-0.1); BASOPHILS % (AUTO) 0.9 %; EOSINOPHILS # (AUTO) 0.3 10^3/uL (0.0-0.7); EOSINOPHILS % (AUTO) 3.8 %; HGB - HEMOGLOBIN 13.3 g/dL (12.0-16.0); LYMPHOCYTES # (AUTO) 1.9 10^3/uL (1.5-3.5); LYMPHOCYTES % (AUTO) 28.4 %; MEAN CORPUSCULAR HEMOGLOBIN 30.4 pg (27.0-31.0); MEAN CORPUSCULAR HGB CONC 32.7 g/dL (32.0-36.0); MEAN CORPUSCULAR VOLUME 92.9 fL (81.0-99.0); MEAN PLATELET VOLUME 11.3 fL (7.9-10.8); MONOCYTES # (AUTO) 0.5 10^3/uL (0.0-1.0); MONOCYTES % (AUTO) 7.8 %; NEUTROPHILS % (AUTO) 58.8 %; PLT - PLATELET COUNT 289 10^3/uL (130-450); RED BLOOD COUNT 4.38 10^6/uL (4.20-5.40); RED CELL DISTRIBUTION WIDTH 13.9 % (12.0-15.0); WHITE BLOOD COUNT 6.8 x10^3/uL (4.8-10.8)
[2020-03-25 12:54] LABS: FERRITIN 105.8 ng/mL (11.0-306.8)
[2020-03-25 13:03] LABS: % IRON SATURATION 20 % (20-50); ALBUMIN 4.2 g/dL (3.2-5.5); ALBUMIN/GLOBULIN RATIO 1.4 (1.0-2.2); ALKALINE PHOSPHATASE 58 IU/L (42-121); ALT ALANINE AMINOTRANSFERASE 22 IU/L (10-60); AST ASPARTATE AMINOTRANSFERASE 21 IU/L (10-42); BILIRUBIN,TOTAL 0.4 mg/dL (0.2-1.0); BUN - BLOOD UREA NITROGEN 14 mg/dL (6-20); CALCIUM 9.5 mg/dL (8.5-10.3); CARBON DIOXIDE - CO2 27 mmol/L (21-32); CHLORIDE 105 mmol/L (101-111); CHOL/HDL RATIO 3.1 (<4.4); CHOLESTEROL 198 mg/dL; CREATININE 0.6 mg/dL (0.4-1.0); GLUCOSE 104 mg/dL (70-100); HDL CHOLESTEROL 63 mg/dL; IRON 69 ug/dL (28-170); LDL CHOLESTEROL,CALCULATED 116 mg/dL; LDL/HDL RATIO 1.8 (<4.4); SODIUM 140 mmol/L (135-145); TOTAL IRON BINDING CAPACITY 350 ug/dL (250-450); TOTAL PROTEIN 7.1 g/dL (6.7-8.2); TRANSFERRIN 250 mg/dL (192-382); VLDL CHOLESTEROL 19 mg/dL
== END 2020-03-25 23:59 | disposition home or self-care (01) ==
LOC: LAB.WCP 09:20
PROVIDERS: ATTEND Family Medicine
DX: Z00.00 Encounter for general adult medical examination without abnormal findings (principal)
CPT/HCPCS: 36415; 80053; 80061; 82607; 82728; 83540; 83721; 84466; 85025

== ENCOUNTER 2021-12-23 08:43 | Outpatient (CLI) | payer BC ==
[2021-12-23 09:11] LABS: ALBUMIN 4.5 g/dL (3.2-5.5); ALBUMIN/GLOBULIN RATIO 1.5 (1.0-2.2); ALKALINE PHOSPHATASE 52 IU/L (42-121); ALT ALANINE AMINOTRANSFERASE 19 IU/L (10-60); AST ASPARTATE AMINOTRANSFERASE 17 IU/L (10-42); BILIRUBIN,TOTAL 0.5 mg/dL (0.2-1.0); BUN - BLOOD UREA NITROGEN 13 mg/dL (6-20); CALCIUM 9.2 mg/dL (8.5-10.3); CARBON DIOXIDE - CO2 27 mmol/L (21-32); CHLORIDE 101 mmol/L (101-111); CHOL/HDL RATIO 2.4 (<4.4); CHOLESTEROL 190 mg/dL; CREATININE 0.5 mg/dL (0.4-1.0); GFR - MDRD 126 (>89); GLUCOSE 107 mg/dL (70-100); HDL CHOLESTEROL 78 mg/dL; LDL CHOLESTEROL,CALCULATED 88 mg/dL; LDL/HDL RATIO 1.1 (<4.4); SODIUM 138 mmol/L (135-145); TOTAL PROTEIN 7.5 g/dL (6.7-8.2); TRIGLYCERIDES 122 mg/dL; VLDL CHOLESTEROL 24 mg/dL
[2021-12-23 09:20] LABS: BASOPHILS % (AUTO) 0.8 %; EOSINOPHILS # (AUTO) 0.1 10^3/uL (0.0-0.7); EOSINOPHILS % (AUTO) 2.4 %; HCT - HEMATOCRIT 39.6 % (37.0-47.0); HGB - HEMOGLOBIN 13.1 g/dL (12.0-16.0); LYMPHOCYTES # (AUTO) 1.8 10^3/uL (1.5-3.5); LYMPHOCYTES % (AUTO) 34.2 %; MEAN CORPUSCULAR HGB CONC 33.1 g/dL (32.0-36.0); MEAN CORPUSCULAR VOLUME 90.8 fL (81.0-99.0); MEAN PLATELET VOLUME 11.1 fL (7.9-10.8); MONOCYTES # (AUTO) 0.4 10^3/uL (0.0-1.0); MONOCYTES % (AUTO) 7.9 %; NEUTROPHILS # (AUTO) 2.9 10^3/uL (1.5-6.6); NEUTROPHILS % (AUTO) 54.5 %; PLT - PLATELET COUNT 238 10^3/uL (130-450); RED BLOOD COUNT 4.36 10^6/uL (4.20-5.40); RED CELL DISTRIBUTION WIDTH 13.7 % (12.0-15.0); WHITE BLOOD COUNT 5.3 x10^3/uL (4.8-10.8)
[2021-12-23 09:23] LABS: THYROID STIMULATING HORMONE 2.33 uIU/mL (0.34-5.60)
== END 2021-12-23 08:44 | disposition home or self-care (01) ==
LOC: LAB 08:43
PROVIDERS: ATTEND Family Medicine
DX: Z00.00 Encounter for general adult medical examination without abnormal findings (principal)
CPT/HCPCS: 36415; 80053; 80061; 83721; 84443; 85025

== ENCOUNTER 2023-05-24 08:13 | Outpatient (CLI) | payer BC ==
--- NOTE | 2023-05-24 13:48 | DEXA Report ---
PROCEDURE: Dexa Spine and/or Hip INDICATIONS: OSTEOPENIA TECHNIQUE: Dual energy x-ray absorptiometry (DXA) was performed on a [employer] System. Regions measur ed are the AP Spine, femoral neck, and if needed forearm. COMPARISON: None. FINDINGS: Lumbar Spine: Bone Mineral Density 1.183 g/cm/cm,T score 0.0. Left Femoral Neck: Bone Mineral Density 0.861 g/cm/cm, T score -1.3. Left Hip: Bone Mineral Density 1.003 g/cm/cm,T score 0.0. (T score greater or equal to -1.0: NORMAL) (T score from -1.1 to -2.4: OSTEOPENIA) (T score less than or equal to -2.5 to: OSTEOPOROSIS) Impression: By WHO criteria, this patient has low bone density (osteopenia). Patients with diagnosis of osteoporosis or osteopenia should have regular bone mineral density assess ment. For those eligible for Medicare, routine testing is allowed once every 2 years. Testing frequ ency can be increased for patients who have rapidly progressing disease or for those who are receivin g medical therapy to restore bone mass. Reviewed by: Mario Bills MD on 05/24/2023 1:47 PM PDT Approved by: Mario Bills MD on 05/24/2023 1:47 PM PDT Station ID: [id number]
== END 2023-05-24 08:14 | disposition home or self-care (01) ==
LOC: DI 08:13
PROVIDERS: ATTEND Physician Assistant
DX: M85.88 Other specified disorders of bone density and structure, other site (principal)

== ENCOUNTER 2023-07-12 08:51 | Outpatient (CLI) | payer BC ==
[2023-07-12 09:18] LABS: ALBUMIN 4.5 g/dL (3.2-5.5); ALBUMIN/GLOBULIN RATIO 1.8 (1.0-2.2); ALKALINE PHOSPHATASE 63 IU/L (42-121); ALT ALANINE AMINOTRANSFERASE 19 IU/L (10-60); AST ASPARTATE AMINOTRANSFERASE 16 IU/L (10-42); BILIRUBIN,TOTAL 0.5 mg/dL (0.2-1.0); BUN - BLOOD UREA NITROGEN 14 mg/dL (6-20); CALCIUM 9.6 mg/dL (8.5-10.3); CARBON DIOXIDE - CO2 29 mmol/L (21-32); CHLORIDE 105 mmol/L (101-111); CHOL/HDL RATIO 2.8 (<4.4); CHOLESTEROL 199 mg/dL; CREATININE 0.6 mg/dL (0.6-1.3); GFR - MDRD 102 (>89); GLUCOSE 110 mg/dL (74-104); HDL CHOLESTEROL 71 mg/dL; LDL CHOLESTEROL,CALCULATED 97 mg/dL; LDL/HDL RATIO 1.4 (<4.4); POTASSIUM 4.2 mmol/L (3.5-4.5); SODIUM 140 mmol/L (135-145); TRIGLYCERIDES 153 mg/dL (48-352); VLDL CHOLESTEROL 31 mg/dL
[2023-07-12 09:23] LABS: BASOPHILS % (AUTO) 0.7 %; EOSINOPHILS # (AUTO) 0.1 10^3/uL (0.0-0.7); EOSINOPHILS % (AUTO) 1.9 %; HCT - HEMATOCRIT 40.2 % (37.0-47.0); HGB - HEMOGLOBIN 13.1 g/dL (12.0-16.0); LYMPHOCYTES # (AUTO) 1.9 10^3/uL (1.5-3.5); LYMPHOCYTES % (AUTO) 32.7 %; MEAN CORPUSCULAR HGB CONC 32.6 g/dL (32.0-36.0); MEAN PLATELET VOLUME 11.1 fL (7.9-10.8); MONOCYTES # (AUTO) 0.4 10^3/uL (0.0-1.0); MONOCYTES % (AUTO) 6.7 %; NEUTROPHILS # (AUTO) 3.4 10^3/uL (1.5-6.6); NEUTROPHILS % (AUTO) 57.5 %; PLT - PLATELET COUNT 243 10^3/uL (130-450); RED BLOOD COUNT 4.37 10^6/uL (4.20-5.40); RED CELL DISTRIBUTION WIDTH 13.9 % (12.0-15.0); WHITE BLOOD COUNT 5.8 x10^3/uL (4.8-10.8)
== END 2023-07-12 08:52 | disposition home or self-care (01) ==
LOC: LAB 08:51
PROVIDERS: ATTEND Physician Assistant
DX: M85.9 Disorder of bone density and structure, unspecified (principal); D05.00 Lobular carcinoma in situ of unspecified breast; Z13.220 Encounter for screening for lipoid disorders
CPT/HCPCS: 36415; 80053; 80061; 83721; 85025